=== PATIENT | female | born 1990 | race Caucasian/White ===

== ENCOUNTER 2022-02-11 13:41 | Emergency (ER) | payer OTHER, SELFPAY ==
[2022-02-11 14:04] LABS: Bilirubin Negative (Negative); Blood, Urine Negative (Negative); Clarity Clear (Clear); Glucose, Urine (Dipstick) Negative (Negative); Ketone, Urine Negative (Negative); Leukocyte Small (Negative); Nitrite Negative (Negative); Protein, Urine (Dipstick) Negative (Neg-Trace); Specific Gravity, Urine 1.025 (1.005-1.030); pH, Urine 6.5 (5.0-9.0)
[2022-02-11 14:06] LABS: Pregnancy Test - Urine (BHCG) Negative (Negative); Pregu Control Background? CLEAR/WHITE (CLR/WHITE); Pregu Control Bar Appear? YES (CONTROL BAR); Specific Gravity 1.025 (1.002-1.036)
[2022-02-11 14:10] LABS: Bacteria/HPF 1+ HPF (None Seen); Mucous/LPF Rare LPF (<2+); RBC/HPF 0-3 HPF (0-3)
[2022-02-11 14:11] LABS: Trichomonas/HPF 2+ HPF (None Seen)
[2022-02-11] MEDS ORDERED: Cyclobenzaprine 10 MG TAB ONE (14:42)
[2022-02-11] MEDS ORDERED: Acetaminophen 325 MG TAB ONE (14:42)
[2022-02-11] MEDS ORDERED: Ketorolac Tromethamine 60 MG/2 ML VIAL ONE (14:43)
== END 2022-02-11 14:51 | disposition home or self-care (01) ==
LOC: NAV ERS 13:41
DX: M62.830 Muscle spasm of back (principal); A59.01 Trichomonal vulvovaginitis; F17.290 Nicotine dependence, other tobacco product, uncomplicated
CPT/HCPCS: 81003; 81015; 81025; 96372; 99283; J1885

== ENCOUNTER 2022-05-09 11:35 | Emergency (ER) | payer SELFPAY ==
[2022-05-09] MEDS ORDERED: Ketorolac Tromethamine 60 MG/2 ML VIAL ONE (12:55)
== END 2022-05-09 13:10 | disposition home or self-care (01) ==
LOC: NAV ERS 11:35
DX: G43.909 Migraine, unspecified, not intractable, without status migrainosus (principal); F17.290 Nicotine dependence, other tobacco product, uncomplicated
CPT/HCPCS: 96372; 99283; J1885

== ENCOUNTER 2022-06-11 16:00 | Emergency (ER) | payer SELFPAY | END 2022-06-11 16:32 | disposition home or self-care (01) | LOC: NAV ERS 16:00 | DX: J06.9 Acute upper respiratory infection, unspecified (principal); H65.92 Unspecified nonsuppurative otitis media, left ear; F17.290 Nicotine dependence, other tobacco product, uncomplicated | CPT/HCPCS: 99283 ==

== ENCOUNTER 2022-06-14 18:44 | Emergency (ER) | payer SELFPAY ==
[2022-06-14] MEDS ORDERED: AMOXicillin 250 MG CAP ONE (19:50)
== END 2022-06-14 19:55 | disposition home or self-care (01) ==
LOC: NAV ERS 18:44
DX: H66.92 Otitis media, unspecified, left ear (principal); K02.9 Dental caries, unspecified; G43.909 Migraine, unspecified, not intractable, without status migrainosus
CPT/HCPCS: 99282

== ENCOUNTER 2022-07-27 10:07 | Emergency (ER) | payer OTHER ==
[2022-07-27] MEDS ORDERED: Ibuprofen 800 MG TAB ONE (10:33)
[2022-07-27] MEDS ORDERED: AMOXicillin 250 MG CAP ONE (10:33)
== END 2022-07-27 10:50 | disposition home or self-care (01) ==
LOC: NAV ERS 10:07
DX: K04.7 Periapical abscess without sinus (principal); H92.03 Otalgia, bilateral; F17.290 Nicotine dependence, other tobacco product, uncomplicated
CPT/HCPCS: 99282

== ENCOUNTER 2023-08-21 11:18 | Emergency (ER) | payer OTHER, SELFPAY ==
[2023-08-21] MEDS ORDERED: Ibuprofen 800 MG TAB ONE (11:40)
[2023-08-21] MEDS ORDERED: Sodium Chloride 0.9% 1,000 ML ONE ×2 (11:56→13:00)
[2023-08-21] MEDS ORDERED: Prochlorperazine 10 MG/2 ML VIAL ONE (11:56)
== END 2023-08-21 13:30 | disposition left against medical advice (07) ==
LOC: NAV ERS 11:18
DX: J11.1 Influenza due to unidentified influenza virus with other respiratory manifestations (principal); F17.290 Nicotine dependence, other tobacco product, uncomplicated
CPT/HCPCS: 96360; 96361; J0780; J7050

== ENCOUNTER 2023-12-11 16:48 | Emergency (ER) | payer SELFPAY | END 2023-12-11 17:45 | disposition home or self-care (01) | LOC: NAV ERS 16:48 | DX: A08.4 Viral intestinal infection, unspecified (principal); F17.290 Nicotine dependence, other tobacco product, uncomplicated | CPT/HCPCS: 99283 ==

== ENCOUNTER 2024-06-14 01:13 | Emergency (ER) | payer SELFPAY ==
[2024-06-14] MEDS ORDERED: Amoxicillin/Potassium Clav 875 MG TAB ONE (01:32)
[2024-06-14] MEDS ORDERED: Ketorolac Tromethamine 60 MG/2 ML VIAL ONE (01:32)
== END 2024-06-14 01:55 | disposition home or self-care (01) ==
LOC: NAV ERS 01:13
DX: S02.5XXA Fracture of tooth (traumatic), initial encounter for closed fracture (principal); K02.9 Dental caries, unspecified; F17.290 Nicotine dependence, other tobacco product, uncomplicated; X58.XXXA Exposure to other specified factors, initial encounter
CPT/HCPCS: 96372; 99282; J1885

== ENCOUNTER 2025-03-25 12:13 | Emergency (ER) | payer OTHER ==
[2025-03-25] MEDS ORDERED: Acetaminophen 500 MG TAB ONE (13:21)
== END 2025-03-25 15:04 | disposition home or self-care (01) ==
LOC: NAV ERS 12:13
DX: S50.12XA Contusion of left forearm, initial encounter (principal); V89.2XXA Person injured in unspecified motor-vehicle accident, traffic, initial encounter
CPT/HCPCS: 99284